=== PATIENT | female | born 1985 | race Caucasian/White ===

== ENCOUNTER 2019-05-22 20:37 | Emergency (ER) | payer BC ==
[~2019-05-22] VITALS: Ht 165.1 cm; Wt 56.7 kg
[~2019-05-22 20:37] MED LIST: BUTALB-ACETAMI1 EACH PO; KEFLEX500 MG PO; PRENATAL-FOLIC1 EACH PO
== END 2019-05-23 00:21 | disposition home or self-care (01) ==
LOC: ED 20:37
DX: N12 Tubulo-interstitial nephritis, not specified as acute or chronic (principal); N39.0 Urinary tract infection, site not specified; F17.200 Nicotine dependence, unspecified, uncomplicated; Z91.018 Allergy to other foods; Z91.010 Allergy to peanuts; Z88.5 Allergy status to narcotic agent
CPT/HCPCS: 74176; 80053; 81001; 83690; 84703; 85025; 96361; 96365; 96375; 99284-25; J0696; J1885; J7030